=== PATIENT | male | born 1935 | race Caucasian/White ===

== ENCOUNTER 2017-03-20 09:53 | Emergency (ER) | payer BC, MEDICARE ==
[~2017-03-20] VITALS: Ht 172.7 cm; Wt 99.8 kg
[~2017-03-20 09:53] MED LIST: ATORVASTATIN CA20 MG ORAL; AVAPRO150 MG ORAL; AVAPRO300 MG ORAL; BACTRIM DS TAB1 EAC1 ORAL; BYSTOLIC 10MG10 MG ORAL; BYSTOLIC2.5 MG ORAL; CRESTOR10 M2 ORAL; ERYTHROMYCIN3.5 GM LEFT EYE; IRBESARTAN300 MG ORAL; NIACIN ER1000 MG PO; OCUFLOX5 ML OP; OFLOXACIN5 ML OT; SYNTHROID100 MCG ORAL; VIBRAMYCIN100 MG ORAL; ZETIA10 MG ORAL
[2017-03-20 11:50] VITALS: BP 148/59
[2017-03-20 11:51] VITALS: BP 148/59
--- NOTE | 2017-03-20 11:57 | Diagnostic Imaging Report ---
Indication: Pain Comparison: None Findings: 3 views of the left foot were obtained. Hammertoes are present post 2 to 5. There is no fracture or malalignment otherwise. Soft tissues are unremarkable. Impression: No acute injury identified
--- NOTE | 2017-03-20 16:11 | Emergency Room Report ---
History of Present Illness General Chief Complaint: Pain Present Illness HPI This is an 81-year-old male who presented after increased left foot pain. Patient gradual onset of symptoms. The patient was noted to have increased pain over the past few days. Patient not been any fever. He denied any recent trauma. He reported having acute onset of sharp pain to the lateral aspect of his foot. The patient had been followed by podiatry. Allergies: Coded Allergies: No Known Allergies (Unverified , 07/14/15) Patient History Past Medical History: see triage record Reviewed Nursing Documentation: PMH: Agreed, PSxH: Agreed Nursing Documentation-PMH Hx Cardiac Problems: Yes - high cholesterol Hx Hypertension: Yes Hx Diabetes: No Hx Cancer: Yes - PROSTATE Hx Gastrointestinal Problems: No Hx Neurological Problems: No Review of Systems All Other Systems: negative except mentioned in HPI Physical Exam Vital Signs Date Time Temp Pulse Resp B/P Pulse Ox O2 Delivery O2 Flow Rate FiO2 03/20/17 09:59 97.5 60 20 150/68 100 Room Air General Appearance: well appearing, no apparent distress, alert, GCS 15 Head: normocephalic, atraumatic ENT: hearing grossly normal, normal voice Neck: full range of motion, supple Respiratory: no respiratory distress, speaking full sentences Musculoskeletal: back normal, no calf tenderness, decreased range of mation, swelling Neurologic: normal inspection, alert, oriented x3, responsive, surveying technician III-XII nml as tested, motor strength/tone normal, normal gait Psychiatric: mood/affect normal Skin: other - large amount of fungal to nails and skin of feet Medical Decision Making Diagnostic Impression: Primary Impression: Arthritis of foot, left ER Course Patient presented for foot pain. Differential diagnoses include was was not limited to cellulitis, foreign body, fracture, plantar fasciitis, vascular insufficiency, sprain. Patient's benign exam and does not appear to require any further imaging or laboratory testing at this time. The patient's leg appears well-perfused. He has good pulses to his extremities good cap refill. Patient was noted to have evidence of a fungal infection to the skin of his foot. The patient stated he has medications for this already. Straight imaging of the left foot read by radiology 3 views showed hammertoes of toes 2- 5 without any fracture evident soft tissues were unremarkable. Patient is advised followup with his primary care physician and that he may need MRI if pain persists. The patient was advised to return if he began having any concerns Last Vital Signs Date Time Temp Pulse Resp B/P Pulse Ox O2 Delivery O2 Flow Rate FiO2 03/20/17 11:51 97.5 84 19 148/59 98 Room Air Status: improved Disposition: HOME, SELF-CARE Condition: Stable Patient Instructions: Arthritis Esau Cartwright Mar 20, 2017 16:11
== END 2017-03-20 11:51 | disposition home or self-care (01) ==
LOC: EMR 10:40
DX: M19.072 Primary osteoarthritis, left ankle and foot (principal); I10 Essential (primary) hypertension; Z85.46 Personal history of malignant neoplasm of prostate
CPT/HCPCS: 99283

== ENCOUNTER 2017-06-07 09:55 | Emergency (ER) | payer BC ==
[~2017-06-07] VITALS: Ht 172.7 cm; Wt 95.3 kg
[2017-06-07] MEDS ORDERED: CRESTOR10 M2 ORAL (10:07)
[2017-06-07] MEDS ORDERED: HYDROCHLOROTHIA25 MG ORAL (10:09)
[2017-06-07 10:10] VITALS: BP 134/72
[2017-06-07] MEDS ORDERED: HYDROCORTISONE-30 GM TOPIC (10:27)
[2017-06-07] MEDS ORDERED: BENADRYL25 M3 PO (10:27)
[2017-06-07] MEDS ORDERED: ACETAMINOPHEN500 M3 ORAL (10:27)
[2017-06-07 10:34] VITALS: BP 134/72
--- NOTE | 2017-06-07 10:54 | Emergency Room Report ---
History of Present Illness General Chief Complaint: General Complaint Source: Patient Present Illness HPI 81-year-old male, presenting with left arm spider bites. Patient and say that they have been seeing spiders around the house, they both have been getting pitting. Patient noted to have bites on left arm, noticed 2 days ago, itchy, not painful, has tingling sensation however no muscle cramping. No fever chills nausea vomiting or abdominal pain. Allergies: Coded Allergies: No Known Allergies (Unverified , 07/14/15) Patient History Past Medical History: see triage record Past Surgical History: none Pertinent Family History: none Reviewed Nursing Documentation: PMH: Agreed, PSxH: Agreed Nursing Documentation-PMH Hx Hypertension: Yes Hx Diabetes: No - Hypothyroid Hx Cancer: Yes - PROSTATE Hx Gastrointestinal Problems: No Hx Neurological Problems: No Review of Systems All Other Systems: negative except mentioned in HPI Physical Exam Vital Signs Date Time Temp Pulse Resp B/P (MAP) Pulse Ox O2 Delivery O2 Flow Rate FiO2 06/07/17 10:00 97.9 70 18 134/72 96 Room Air Sp02 EP Interpretation: reviewed, normal General Appearance: normal inspection, well appearing, no apparent distress, alert, GCS 15, non-toxic Head: normocephalic, atraumatic Eyes: bilateral eye normal inspection, bilateral eye PERRL, bilateral eye EOMI ENT: normal ENT inspection, normal pharynx, normal voice, moist mucus membranes Neck: normal inspection, full range of motion, supple Respiratory: normal inspection, lungs clear, normal breath sounds, no respiratory distress, no retraction, no wheezing, speaking full sentences, chest symmetrical Cardiovascular #1: normal inspection, regular rate, rhythm, no edema, normal capillary refill Cardiovascular #2: 2+ radial (R), 2+ radial (L) Gastrointestinal: normal inspection, non tender, soft, non-distended, no guarding Genitourinary: no CVA tenderness Musculoskeletal: normal inspection, back normal, normal range of motion, non- tender Neurologic: normal inspection, alert, oriented x3, responsive, motor strength/ tone normal, sensory intact, normal gait, speech normal Psychiatric: normal inspection, judgement/insight normal, memory normal Skin: warm/dry, well hydrated, normal turgor, other - About 5 insect bites noted in left upper extremity, various sizes from 2 cm circular to 3 cm, no open wound, no purulent drainage, mildly tender to palpation, does not appear to be infected at this time Medical Decision Making Diagnostic Impression: Primary Impression: Spider bite ER Course 81-year-old male with possible spider bites DDX: Possible black spider bite, likely symptoms limited to skin, no signs symptoms of muscle cramping Does not appear to be infected at this time Plan: None emergency room ER course: Patient has remained stable during ED stay. Disposition: Patient is to be discharged to home. Prescriptions given are hydrocortisone cream, Benadryl Patient is instructed to follow up with their primary care doctor within 5 days for wound recheck Strict return precautions discussed with patient such as fever, chills, worsening/severe pain, nausea, vomiting, abdominal pain, spread of rash, yellow drainage which may indicate severe illness. Patient verbalizes understanding and agrees with plan. Please note that this Emergency Department Report was dictated using [employer] benefit [employer] technology software, occasionally this can lead to erroneous entry secondary to interpretation by the dictation equipment Last Vital Signs Date Time Temp Pulse Resp B/P (MAP) Pulse Ox O2 Delivery O2 Flow Rate FiO2 06/07/17 10:34 97.9 68 18 134/72 96 Room Air Disposition: HOME, SELF-CARE Condition: Stable Scripts Acetaminophen* (ACETAMINOPHEN EXTRA STRENGTH*) 500 Mg Tablet 500 MG ORAL Q8H Y for Fever/Headache/Mild Pain, #30 TAB 0 Refills Prov: Gayathri Tyson M.D. 06/07/17 Diphenhydramine HCl (Benadryl) 25 Mg Capsule 25 MG PO Q6H Y for Itching, #30 CAP 0 Refills Prov: Gayathri Tyson M.D. 06/07/17 Hydrocortisone/Aloe Vera 1%* (HYDROCORTISONE-ALOE 1% CREAM*) Y Cr 1 APPLIC TOPIC Q6H Y for Itching, #30 GM 0 Refills Prov: Gayathri Tyson M.D. 06/07/17 Referrals: NON PHYSICIAN (PCP) Patient Instructions: Black Soha Spider Bite, [id number] Gayathri Tyson M.D. Jun 07, 2017 10:54
== END 2017-06-07 10:50 | disposition home or self-care (01) ==
LOC: EMR 10:30
DX: S40.872A Other superficial bite of left upper arm, initial encounter (principal); W57.XXXA Bitten or stung by nonvenomous insect and other nonvenomous arthropods, initial encounter; Y92.89 Other specified places as the place of occurrence of the external cause; I10 Essential (primary) hypertension; E03.9 Hypothyroidism, unspecified; Z85.46 Personal history of malignant neoplasm of prostate
CPT/HCPCS: 99284

== ENCOUNTER 2018-09-26 09:58 | Emergency (ER) | payer BC ==
[~2018-09-26] VITALS: Ht 172.7 cm; Wt 99.8 kg
[~2018-09-26 09:58] MED LIST changes: +ACETAMINOPHEN500 M3 ORAL; +BENADRYL25 M3 PO; +HYDROCHLOROTHIA25 MG ORAL; +HYDROCORTISONE-30 GM TOPIC
[2018-09-26 10:03] VITALS: BP 157/72
--- NOTE | 2018-09-26 10:18 | NUR ---
ED Nurse Note: Pt. AAOx4. ambulaotry. Came in to ER due to a popped blister on the left foot. no drainage noted at this time. 08/19 pain noted on the site. Addendum: 09/26/18 at 1032 by DENITAO lower left leg *
--- NOTE | 2018-09-26 10:25 | NUR ---
ED Nurse Note: Dr. Rios at the bedside
[2018-09-26] MEDS ORDERED: Bacitracin Oint UD TOPIC ONE (10:30)
[2018-09-26] MEDS ORDERED: CEPHALEXIN500 MG ORAL (10:43)
[2018-09-26] MEDS ORDERED: BACITRACIN15 GM TOPIC (10:43)
[2018-09-26 10:49] VITALS: BP 157/72
--- NOTE | 2018-09-26 10:49 | NUR ---
ED Nurse Note: dressing change done on the lower left leg.
--- NOTE | 2018-09-26 10:50 | NUR ---
ED Nurse Note: Pt. AAOx4. ambulatory with cane assistance. Pt. education done regarding d/c instructions and prescriptions. VSS. ID armband removed. Left with all belongings.
--- NOTE | 2018-09-26 11:21 | Emergency Room Report ---
History of Present Illness General Chief Complaint: Wound Recheck/Suture Removal Source: Patient, Medical Record Present Illness HPI 83-year-old male presents ED for evaluation. Patient complaining of a blister to his left leg 3 days. Had a dressing on there. Pain is minimal, 1 out of 10 , dull, nonradiating. Denies fevers or chills. Denies any drainage or discharge. Notes redness to both legs. States he has frequent infections to his legs. States this is not unusual for him. Patient also notes profuse scaliness to the bottom of his feet. States he normally sees a field professional but has not seen one in some time. No other aggravating relieving factors. Denies any other associated symptoms Allergies: Coded Allergies: No Known Allergies (Unverified , 07/14/15) Patient History Past Medical History: other - prostate cancer Past Surgical History: none Pertinent Family History: none Social History: Denies: smoking, alcohol use, drug use Immunizations: UTD Reviewed Nursing Documentation: PMH: Agreed; PSxH: Agreed Nursing Documentation-PMH Past Medical History: No History, Except For Hx Cardiac Problems: No - High cholesterol Hx Hypertension: Yes Hx Diabetes: No - Hypothyroid Hx Cancer: Yes - PROSTATE Hx Gastrointestinal Problems: No Hx Neurological Problems: No Review of Systems All Other Systems: negative except mentioned in HPI Physical Exam Vital Signs Date Time Temp Pulse Resp B/P (MAP) Pulse Ox O2 Delivery O2 Flow Rate FiO2 09/26/18 10:03 98.1 63 18 157/72 99 Room Air Sp02 EP Interpretation: reviewed, normal General Appearance: no apparent distress, alert, GCS 15, non-toxic Head: normocephalic Eyes: bilateral eye normal inspection, bilateral eye PERRL ENT: normal ENT inspection Neck: normal inspection Respiratory: normal inspection Cardiovascular #1: normal inspection Gastrointestinal: normal inspection Rectal: deferred Genitourinary: no CVA tenderness Musculoskeletal: normal inspection Neurologic: alert, oriented x3, responsive, motor strength/tone normal, sensory intact, speech normal Psychiatric: normal inspection Skin: other - erythema/induration bilateral LEs. 3cm open blister to LLE. no drainage Lymphatic: normal inspection Medical Decision Making Diagnostic Impression: Primary Impression: Blister Additional Impression: Cellulitis of both lower extremities ER Course Hospital Course 83 yo M presents to ED c/o blister to LLE Differential diagnoses include: Cellulitis, dermatitis, insect bite, abscess Clinical course Patient placed on stretcher. After initial history, physical exam reveals an elderly male in no acute distress. On exam there is a 3 cm blister noted to the left lower extremity.No fluctuance or discharge. There is some surrounding erythema and induration to the left lower extremity. Also noted on the right lower extremity. No swelling. Patient states this is typical for him. States that he usually gets antibiotics and symptoms resolved. There is considerable scaliness to the bottom of his feet along with poor nail care. States that he does see a field professional on occasion but has not seen one in some time Patient is afebrile, nontoxic appearing. Patient would prefer to take antibiotics at home. Bacitracin and dressing applied here. Will discharge with Keflex. We'll provide podiatry referrals. Safe for discharge close outpatient follow-up Diagnosis - blister, cellultis of both lower extremities stable and discharged to home with prescription for bacitracin, Keflex. Instructed to followup with PMD/podiatry. Instructed return to ED if symptoms recur or worsen Last Vital Signs Date Time Temp Pulse Resp B/P (MAP) Pulse Ox O2 Delivery O2 Flow Rate FiO2 09/26/18 10:49 98.1 63 18 157/72 99 Room Air Status: improved Disposition: HOME, SELF-CARE Condition: Stable Scripts Bacitracin (Bacitracin) 28.4 Gm Oint...g. 1 APPLIC TOPIC THREE TIMES A DAY, #28.4 GM Prov: Jonathan Hong MD 09/26/18 Cephalexin* (KEFLEX*) 500 Mg Capsule 500 MG ORAL EVERY 6 HOURS for 7 Days, CAP Prov: Jonathan Hong MD 09/26/18 Referrals: NON PHYSICIAN (PCP) David Perez DPM, BENJAMIN M.D. Patient Instructions: Blisters Additional Instructions: complete your ampicillin prescription, then start keflex. followup with podiatry as outpatient Jonathan Hong MD Sep 26, 2018 11:21
== END 2018-09-26 10:52 | disposition home or self-care (01) ==
LOC: EMR 10:20
DX: S80.822A Blister (nonthermal), left lower leg, initial encounter (principal); S80.821A Blister (nonthermal), right lower leg, initial encounter; L03.116 Cellulitis of left lower limb; L03.115 Cellulitis of right lower limb; X58.XXXA Exposure to other specified factors, initial encounter; Y92.9 Unspecified place or not applicable; I10 Essential (primary) hypertension; E03.9 Hypothyroidism, unspecified; Z85.46 Personal history of malignant neoplasm of prostate
CPT/HCPCS: 99282